=== PATIENT | female | born 2005 | race Caucasian/White ===

== ENCOUNTER 2025-01-08 13:11 | Emergency (ER) | payer BC ==
[~2025-01-08] VITALS: Ht 177.8 cm; Wt 63.5 kg
[2025-01-08] MEDS ORDERED: NEOMYCIN/POLYMYXIN B/HYDROCORT 20 DR/ML BOTTLE OT ONE (17:02)
[2025-01-08] MEDS ORDERED: NEOMYCIN/POLYMYXIN B/HYDROCORT 20 DR/ML BOTTLE OT STA (17:09)
== END 2025-01-08 17:36 | disposition home or self-care (01) ==
LOC: ER 13:31
DX: H60.8X2 Other otitis externa, left ear (principal)